=== PATIENT | male | born 1990 | race Caucasian/White ===

== ENCOUNTER 2024-04-08 21:56 | Emergency (ER) | payer BC ==
[~2024-04-08] VITALS: Ht 180.3 cm; Wt 69.1 kg
[2024-04-08 22:16] VITALS: BP 134/90; PULSE 89; TEMP 97.7; O2SAT 99
[2024-04-08 23:29] VITALS: RESP 16
== END 2024-04-08 23:30 | disposition home or self-care (01) ==
LOC: ER 21:57
DX: F41.9 Anxiety disorder, unspecified (principal); G89.29 Other chronic pain; R07.89 Other chest pain; R22.41 Localized swelling, mass and lump, right lower limb; Z88.2 Allergy status to sulfonamides
CPT/HCPCS: 93005; 99283